=== PATIENT | male | born 1960 | race Caucasian/White ===

== ENCOUNTER 2025-04-04 06:27 | Day surgery (SDC) | payer OTHER, SELFPAY ==
[2025-04-04 13:26] LABS: Glucose - Point of Care 95 mg/dl (70-99)
[2025-04-04 13:29] VITALS: BMI 23.4
[2025-04-04 13:30] VITALS: BMI 23.4
[2025-04-04 13:31] VITALS: BP 163/82
[2025-04-04 15:46] VITALS: BP 128/73
[2025-04-04 16:00] VITALS: BP 141/72
[2025-04-04 16:10] LABS: Glucose - Point of Care 79 mg/dl (70-99)
[2025-04-04 16:20] VITALS: BP 148/77
[2025-04-04 16:35] VITALS: BP 143/81
[2025-04-04 16:45] VITALS: BP 149/81
== END 2025-04-04 16:50 | disposition home or self-care (01) ==
LOC: SDS 06:27
PROVIDERS: ATTENDING PHYSICIAN Internal Medicine Gastroenterology
DX: C16.0 Malignant neoplasm of cardia (principal); I85.00 Esophageal varices without bleeding; K74.60 Unspecified cirrhosis of liver; K22.81 Esophageal polyp; K22.89 Other specified disease of esophagus; K31.89 Other diseases of stomach and duodenum; K86.9 Disease of pancreas, unspecified; R93.2 Abnormal findings on diagnostic imaging of liver and biliary tract; Z79.01 Long term (current) use of anticoagulants
CPT/HCPCS: 43259; 88305; 82962